=== PATIENT | female | born 1985 | race American Indian/Alaskan Native ===

== ENCOUNTER 2017-04-04 20:41 | Inpatient (IN) | payer OTHER ==
[2017-04-04 21:32] LABS: Basophils % (Auto) 0.4 % (0.0-1.8); Eosinophils % (Auto) 1.3 % (0.0-4.3); Hematocrit 37.2 % (30.3-42.9); Hemoglobin 12.1 gm/dl (10.1-14.3); Mean Corpuscular HGB Conc 33 % (30-34); Mean Corpuscular Hemoglobin 29 pg (28-32); Mean Corpuscular Volume 90 fl (79-97); Red Blood Count 4.13 M/mm3 (3.65-5.03); Red Cell Distribution Width 14.6 % (13.2-15.2); White Blood Count 11.6 K/mm3 (4.5-11.0)
[2017-04-04 21:38] LABS: Platelet Count 212 K/mm3 (140-440)
[2017-04-04 21:47] LABS: Anion Gap 19 mmol/L; Blood Urea Nitrogen 9 mg/dL (7-17); Calcium 8.9 mg/dL (8.4-10.2); Carbon Dioxide 23 mmol/L (22-30); Chloride 97.6 mmol/L (98-107); Glucose 103 mg/dL (65-100); Potassium 3.6 mmol/L (3.6-5.0); Sodium 136 mmol/L (137-145)
--- NOTE | 2017-04-04 23:56 | Emergency Department Report ---
ED Shortness of Breath HPI - General Chief Complaint: Dyspnea/Respdistress Stated Complaint: LEATHA Time Seen by Provider: 04/04/17 23:38 Source: patient Mode of arrival: Ambulatory Limitations: No Limitations - History of Present Illness Initial Comments: 32-year-old female presents to the emergency department complaining of difficulty breathing. Patient states she began having difficulty breathing 4 days ago. She reports dyspnea on exertion and fatigue. She reports pleuritic chest pain and cough. Cough has been nonproductive. There has been no fever, coughing, nausea, vomiting, or diarrhea. Patient states she was seen in the emergency room at [facility] on Sunday and was told she had fluid in her lungs from a pneumonia. She was started on anti-biotics. She states her symptoms have not improved. She was also seen by her oncologist earlier today and was told that her port may have a blood clot in it. She is scheduled for surgery in 5 days to address this possible clot. There are no other complaints. MD Complaint: shortness of breath -: Gradual, days(s) (4) Severity: mild Pain Scale: 2 Quality: other (pleuritic) Consistency: constant Improves With: nothing Worsens With: exertion Associated Symptoms: chest pain, cough - Related Data Previous Rx's Medication Instructions Recorded Last Taken Type Doxycycline [Vibramycin CAP] 100 mg PO BID #20 capsule 06/28/14 Unknown Rx Fluticasone Propionate [Flonase] 2 sprays NS QDAY #1 spray 06/28/14 Unknown Rx HYDROcodone/APAP 7.5-325 [[place] 1 each PO Q6HR PRN #20 tablet 06/28/14 Unknown Rx 7.5/325 mg] Ibuprofen [Motrin] 600 mg PO Q8H PRN #50 tablet 06/28/14 Unknown Rx Loratadine [Claritin] 10 mg PO DAILY #30 tablet 06/28/14 Unknown Rx metroNIDAZOLE [Flagyl] 500 mg PO BID #20 tablet 06/28/14 Unknown Rx Allergies Allergy/AdvReac Type Severity Reaction Status Date / Time No Known Allergies Allergy Unverified 06/28/14 11:50 ED Review of Systems ROS: Stated complaint: LEATHA Other details as noted in HPI Comment: All other systems reviewed and negative Respiratory: cough, shortness of breath, SOB with exertion Cardiovascular: chest pain ED Past Medical Hx - Past Medical History Previous Medical History?: Yes Hx Psychiatric Treatment: Yes (Anxiety) Additional medical history: Hodgkin Lymphoma - Surgical History Past Surgical History?: Yes Additional Surgical History: Port placement - Family History Family history: no significant - Social History Smoking Status: Current Some Day Smoker Substance Use Type: Alcohol - Medications Home Medications: Home Medications Medication Instructions Recorded Confirmed Last Taken Type Doxycycline [Vibramycin CAP] 100 mg PO BID #20 capsule 06/28/14 Unknown Rx Fluticasone Propionate [Flonase] 2 sprays NS QDAY #1 spray 06/28/14 Unknown Rx HYDROcodone/APAP 7.5-325 [[place] 1 each PO Q6HR PRN #20 tablet 06/28/14 Unknown Rx 7.5/325 mg] Ibuprofen [Motrin] 600 mg PO Q8H PRN #50 tablet 06/28/14 Unknown Rx Loratadine [Claritin] 10 mg PO DAILY #30 tablet 06/28/14 Unknown Rx metroNIDAZOLE [Flagyl] 500 mg PO BID #20 tablet 06/28/14 Unknown Rx ED Physical Exam - General Limitations: No Limitations General appearance: alert, in no apparent distress - Head Head exam: Present: atraumatic, normocephalic - Eye Eye exam: Present: normal appearance, PERRL, EOMI - ENT ENT exam: Present: normal exam, normal orophraynx, mucous membranes moist - Neck Neck exam: Present: normal inspection, full ROM. Absent: tenderness - Respiratory Respiratory exam: Present: decreased breath sounds (bilateral posterior bases). Absent: respiratory distress - Cardiovascular Cardiovascular Exam: Present: normal rhythm, tachycardia, normal heart sounds - GI/Abdominal GI/Abdominal exam: Present: soft, normal bowel sounds. Absent: distended, tenderness - Extremities Exam Extremities exam: Present: normal inspection, full ROM. Absent: tenderness - Back Exam Back exam: Present: normal inspection, full ROM. Absent: tenderness - Neurological Exam Neurological exam: Present: alert, oriented X3. Absent: motor sensory deficit - Skin Skin exam: Present: warm, dry, intact ED Course Vital Signs 04/04/17 04/05/17 04/05/17 20:49 00:16 02:54 Temperature 98.3 F 98.4 F Pulse Rate 120 H 111 H 103 H Respiratory 22 24 26 H Rate Blood Pressure 104/71 [Left] Blood Pressure 147/110 120/88 [Right] O2 Sat by Pulse 97 100 100 Oximetry ED Medical Decision Making - Lab Data Result diagrams: 04/04/17 21:23 04/04/17 21:23 - EKG Data -: EKG Interpreted by Me EKG shows normal: sinus rhythm, axis, intervals, QRS complexes, ST-T waves Rate: tachycardia - EKG Data When compared to previous EKG there are: previous EKG unavailable Interpretation: normal EKG - Radiology Data Radiology results: report reviewed, image reviewed interpreted by me: Chest x-ray shows bilateral pleural effusions, left greater than right. CTA of the chest shows no evidence of pulmonary embolism. There are small bilateral pleural effusions. There is also nonspecific patchy infiltrates in the left upper lobe and right middle lobe. 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 - Medical Decision Making Lab and imaging results reviewed and discussed with the patient. Patient continues to remain symptomatic with ambulation. Patient is to be admitted by the hospitalist for further treatment. - Differential Diagnosis pneumonia, pulmonary edema, PE Critical care attestation.: If time is entered above; I have spent that time in minutes in the direct care of this critically ill patient, excluding procedure time. ED Disposition Clinical Impression: Exertional dyspnea Disposition: OP ADMIT IP TO THIS HOSP Is pt being admited?: Yes Condition: Stable Referrals: PRIMARY CARE, [Primary Care Provider] - 3-5 Days Time of Disposition: 03:56
[2017-04-04] MEDS ORDERED: NACL ONE (23:59)
[2017-04-05] MEDS ORDERED: TYLENOL PO ONE (01:13)
[2017-04-05] MEDS ORDERED: TYLENOL ONE (01:13)
[2017-04-05] MEDS ORDERED: ZOFRAN ONE (03:07)
[2017-04-05] MEDS ORDERED: REGLAN IV ONE (03:08)
[2017-04-05] MEDS ORDERED: ZOFRAN IV ONE (03:08)
[2017-04-05] MEDS ORDERED: ZOFRAN ODT ONE (03:12)
[2017-04-05] MEDS ORDERED: ZOFRAN ODT PO ONE (03:12)
--- NOTE | 2017-04-05 03:40 | XRay Report ---
FINAL REPORT EXAM: CT ANGIO CHEST HISTORY: LEATHA, h/o lymphoma COMPARISON: None available. TECHNIQUE: Contiguous axial images were obtained. Additional sagittal and coronal reformatted images were obtained. Administration of IV contrast given per institution protocol. Images submitted for interpretation. 100 cc Omnipaque 350. FINDINGS: Heart normal in size. Thoracic aorta normal in caliber. No gross dissection. No pulmonary embolus identified. Left upper lobe pulmonary arterial branches appear to be small in caliber or atrophic. There may be stenosed or small in size due to prior radiation therapy to that region. No evidence of acute occlusive pulmonary embolus. There innumerable collateral vessels along the mediastinum, paraspinal region. Findings are concerning for occlusion of the SVC. Right Port-A-Cath is in place. IVC appears to be patent. Collateral vessels appear to drain into the IVC. Ill-defined soft tissue within the mediastinum which may reflect scar formation from prior radiation therapy for lymphoma. Active lymphoma cannot be excluded. Small bilateral pleural effusions. Nonspecific patchy linear opacities left upper lobe and left lower lobe which could reflect atelectasis, scarring, pneumonia, or lymphomatous involvement of the lung. Tiny hiatal hernia. Fatty infiltration of the liver. Liver is mildly enlarged measuring 23 centimeters. Degenerative changes of the thoracic spine. IMPRESSION: No acute pulmonary embolus. Ill-defined soft tissue along the mediastinum concerning for scarring related to prior radiation therapy to the mediastinum. 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 There is also blunting of the left upper lobe pulmonary arterial branches suspected be on a chronic basis related to prior radiation therapy. Nonspecific patchy opacities within left upper lobe and left lower lobe which could reflect atelectasis, pneumonia, scarring, or lymphomatous involvement of the lung. Small bilateral pleural effusions.
[2017-04-05] MEDS ORDERED: MORPHINE IV PRN (04:17)
[2017-04-05] MEDS ORDERED: ZOFRAN IV PRN (04:17)
[2017-04-05] MEDS ORDERED: ROBITUSSIN PO PRN (04:18)
[2017-04-05] MEDS ORDERED: DUONEB *Not for PRN Use IH (04:23)
--- NOTE | 2017-04-05 04:32 | History and Physical Report ---
History of Present Illness Date of examination: 04/05/17 Date of admission: 04/05/2017 Chief complaint: Chief complaint is shortness of breath History of present illness: History of present illness, patient is a 32-year-old female who has been having shortness of breath for 4 days, there is also symptoms of pleuritic chest pain and nonproductive cough. Patient denied history of fever and chills and denied history of nausea vomiting. Patient will was seen about 4 days ago at [facility] emergency room and was started on oral antibiotics Levaquin for treatment of fluids in the lung due to pneumonia, also patient was seen by her oncologist who told that she may have blood clot in the Port used for IV chemotherapy treatment. Past History Past Medical History: other (HODGKINS LYMPHOMA, PNEUMONIA, ANXIETY DISORDER) Past Surgical History: Other (PORT PLACEMENT) Social history: smoking, alcohol abuse Family history: no significant family history Medications and Allergies Allergies Allergy/AdvReac Type Severity Reaction Status Date / Time No Known Allergies Allergy Unverified 06/28/14 11:50 Home Medications Medication Instructions Recorded Confirmed Last Taken Type Doxycycline [Vibramycin CAP] 100 mg PO BID #20 capsule 06/28/14 Unknown Rx Fluticasone Propionate [Flonase] 2 sprays NS QDAY #1 spray 06/28/14 Unknown Rx HYDROcodone/APAP 7.5-325 [[place] 1 each PO Q6HR PRN #20 tablet 06/28/14 Unknown Rx 7.5/325 mg] Ibuprofen [Motrin] 600 mg PO Q8H PRN #50 tablet 06/28/14 Unknown Rx Loratadine [Claritin] 10 mg PO DAILY #30 tablet 06/28/14 Unknown Rx metroNIDAZOLE [Flagyl] 500 mg PO BID #20 tablet 06/28/14 Unknown Rx Active Meds: Active Medications Acetaminophen (Tylenol) 650 mg PO Q4H PRN PRN Reason: Fever Albuterol/Ipratropium (Duoneb *Not For Prn Use*) 1 ampul IH TIDRT PRN PRN Reason: Shortness Of Breath Enoxaparin Sodium (Lovenox) 40 mg SUB-Q QDAY SANJEEV Guaifenesin (Robitussin) 200 mg PO Q6H PRN PRN Reason: Cough Levofloxacin/Dextrose (Levaquin 750mg/150ml) 750 mg in 150 mls @ 100 mls/hr IV Q24HR SANJEEV PRN Reason: Protocol Morphine Sulfate (Morphine) 2 mg IV Q4H PRN PRN Reason: Pain, Moderate (4-6) Ondansetron HCl (Zofran) 4 mg IV Q6H PRN PRN Reason: Nausea And Vomiting Review of Systems Constitutional: weakness, no weight loss, no weight gain, no fever, no chills, no sweats, no anorexia, no fatigue, no malaise, no lethargy, no poor appetite, no daytime sleepiness Eyes: bilateral: other (NO BILATERAL EYE SYMPTOMS) Ears, nose, mouth and throat: no ear pain, no ear discharge, no tinnitis, no decreased hearing, no nose pain, no nasal congestion, no nasal discharge, no sinus pressure, no bleeding gums, no dental pain, no mouth pain, no dysphagia, no hoarseness, no sore throat, no swelling in mouth, no swelling in throat, no post-nasal drip, no headache, no vertigo, no pain front of neck, no neck fullness/pressure, no neck lump Breasts: deferred Cardiovascular: shortness of breath, decreased exercise tolerance, no chest pain , no orthopnea, no palpitations, no rapid/irregular heart beat, no edema, no syncope, no lightheadedness, no dyspnea on exertion, no paroxysmal nocturnal dyspnea, no claudication, no phlebitis, no high blood pressure, no leg edema Respiratory: cough, shortness of breath, dyspnea on exertion, no cough with sputum, no hemoptysis, no congestion, no wheezing, no pleurisy, no sleep apnea, no respiratory infections Gastrointestinal: no nausea, no vomiting, no diarrhea, no constipation, no change in bowel habits, no hematemesis, no melena, no hematochezia, no loss of appetite, no early satiety, no excessive gas, no jaundice, no dyspepsia/bloating Genitourinary Female: no dyspareunia, no dysmenorrhea, no pelvic pain, no flank pain, no menorrhagia, no dysuria, no urinary frequency, no urgency, no stress incontinence, no post void dribbling, no incomplete emptying, no urge incontinence, no mixed incontinence, no vaginal itching, no vaginal discharge, no abnormal vaginal bleeding, no genital sores, no vaginal dryness, no decreased libido, no mood problems, no hot flashes, no prolapse symptoms, no , no difficulties conceiving Menstruation: no postmenopausal Rectal: no pain, no incontinence, no bleeding, no hemorrhoids, no flatulence Musculoskeletal: no neck stiffness, no neck pain, no shooting arm pain, no arm numbness/tingling, no low back pain, no shooting leg pain, no leg numbness/ tingling, no hot joints, no morning stiffness, no muscle weakness, no muscle cramps, no myalgias, no atrophy, no frequent falls, no fractures, no loss of height, no prior amputations Integumentary: no rash, no pruritis, no redness, no sores, no jaundice, no lesions, no depigmentation, no acne, no brittle nails, no striae, no hirsutism, no foot/leg ulcers, no onychomycosis Neurological: no head injury, no transient paralysis, no paralysis, no weakness , no parathesias, no numbness, no tingling, no seizures, no syncope, no tremors , no ataxia, no headaches, no migraines, no convulsions, no aphasia, no change in speech, no change in mentation, no confusion, no memory loss, no motor disturbance, no sensory deficit, no double vision, no loss of vision, no hearing difficulties, no burning pain, no paralysis, no spasticity Psychiatric: no anxiety, no memory loss, no change in sleep habits, no sleep disturbances, no insomnia, no hypersomnia, no change in appetite, no change in libido, no suicidal ideation, no disorientation, no depression, no hopelessness , no anhedonia, no anxiety attacks, no difficulties concentrating, no confusion , no irritability, no sadness/tearfullness, no mood swings Endocrine: no cold intolerance, no heat intolerance, no polyphagia, no excessive thirst, no polydipsia, no polyuria, no nocturia, no proptosis, no deepening of the voice, no thyroid mass, no palpatations, no high blood sugars, no low blood sugars, no recent glucocorticoid use Hematologic/Lymphatic: no easy bruising, no easy bleeding, no lymphadenopathy, no lymphedema, no thrombophilia Allergic/Immunologic: no urticaria, no allergic rhinitis, no persistent infections, no anaphylaxis, no gluten intolerance, no seasonal allergies Exam - Constitutional Vitals: Temp Pulse Resp BP Pulse Ox 98.4 F 103 H 26 H 120/88 100 04/05/17 00:16 04/05/17 02:54 04/05/17 02:54 04/05/17 02:54 04/05/17 02:54 General appearance: Absent: no acute distress, mild distress, severe distress, well-nourished, cachectic, disheveled, malodorous - EENT Eyes: Present: PERRL, EOM intact. Absent: irregular pupil, scleral icterus, conjunctival injection, exopthalmos, miosis, mydriasis, discharge ENT: hearing intact, clear oral mucosa, dentition normal, no oropharyngeal erythema, no poor dentition, no edentulous - Neck Neck: Present: supple, normal ROM. Absent: enlarged thyroid, carotid bruits - Respiratory Respiratory effort: normal - Cardiovascular Rhythm: regular Heart Sounds: Present: S1 & S2. Absent: systolic murmur, diastolic murmur, rub - Extremities Extremities: no ischemia, No edema Peripheral Pulses: within normal limits - Abdominal General gastrointestinal: Present: soft, non-tender, non-distended. Absent: tender, distended, rigid, hepatomegaly, splenomegaly, mass, hernia Female genitourinary: Present: deferred - Rectal Rectal Exam: deferred - Integumentary Integumentary: Present: clear, warm, dry, normal turgor. Absent: erythema, jaundice, rash, clammy - Musculoskeletal Musculoskeletal: strength equal bilaterally - Psychiatric Psychiatric: appropriate mood/affect - Neurologic Neurologic: CNII-XII intact Results - Labs CBC & Chem 7: 04/04/17 21:23 04/04/17 21:23 Labs: Laboratory Last Values WBC 11.6 K/mm3 (4.5-11.0) H 04/04/17 21:23 RBC 4.13 M/mm3 (3.65-5.03) 04/04/17 21:23 Hgb 12.1 gm/dl (10.1-14.3) 04/04/17 21:23 Hct 37.2 % (30.3-42.9) 04/04/17 21:23 MCV 90 fl (79-97) 04/04/17 21:23 MCH 29 pg (28-32) 04/04/17 21:23 MCHC 33 % (30-34) 04/04/17 21:23 RDW 14.6 % (13.2-15.2) 04/04/17 21:23 Plt Count 212 K/mm3 (140-440) 04/04/17 21:23 Lymph % (Auto) 10.6 % (13.4-35.0) L 04/04/17 21:23 [place] % (Auto) 6.7 % (0.0-7.3) 04/04/17 21:23 Eos % (Auto) 1.3 % (0.0-4.3) 04/04/17 21: Baso % (Auto) 0.4 % (0.0-1.8) 04/04/17 21: Lymph # 1.2 K/mm3 (1.2-5.4) 04/04/17 21: [place] # 0.8 K/mm3 (0.0-0.8) 04/04/17 21: Eos # 0.1 K/mm3 (0.0-0.4) 04/04/17 21: Baso # 0.1 K/mm3 (0.0-0.1) 04/04/17 21:23 Seg Neutrophils % 81.0 % (40.0-70.0) H 04/04/17 21:23 Seg Neutrophils # 9.4 K/mm3 (1.8-7.7) H 04/04/17 21:23 VBG pH 7.489 (7.320-7.420) H 04/04/17 21:23 Sodium 136 mmol/L (137-145) L 04/04/17 21:23 Potassium 3.6 mmol/L (3.6-5.0) 04/04/17 21:23 Chloride 97.6 mmol/L (98-107) L 04/04/17 21:23 Carbon Dioxide 23 mmol/L (22-30) 04/04/17 21:23 Anion Gap 19 mmol/L 04/04/17 21:23 BUN 9 mg/dL (7-17) 04/04/17 21:23 Creatinine 0.6 mg/dL (0.7-1.2) L 04/04/17 21:23 Estimated GFR > 60 ml/min 04/04/17 21:23 BUN/Creatinine Ratio 15.00 % 04/04/17 21:23 Glucose 103 mg/dL (65-100) H 04/04/17 21:23 Lactic Acid 1.50 mmol/L (0.7-2.0) 04/04/17 21: Calcium 8.9 mg/dL (8.4-10.2) 04/04/17 21: Magnesium 1.70 mg/dL (1.7-2.3) 04/04/17 21: Troponin T < 0.010 ng/mL (0.00-0.029) 04/04/17 21: HCG, Qual Negative (Negative) 04/04/17 21:23 Assessment and Plan - Patient Problems (1) Bronchitis Current Visit: Yes Status: Acute Plan to address problem: Patient will be admitted to the medical floor, and will be on IV Levaquin 750 mg daily for empirical treatment of bronchitis, patient will be on DuoNeb 3 times daily as needed for shortness of breath and will be on Robitussin 200 mg every 4 hours by mouth for cough. Patient will be on I.V Zofran 4 mg every 6 hours for nausea and vomiting and Tylenol 650 mg by mouth as needed for fever or headache. Patient will have vascular surgical consult with Dr. Gallegos for finding of occlusion of the superior vena cava on CT scan with symptoms of chest tightness and shortness of breath and patient will be on IV morphine 2 mg every 4 hours as needed for pain and subcutaneous Lovenox for DVT prophylaxis (2) Superior vena cava obstruction Current Visit: Yes Status: Acute
[2017-04-05] MEDS: TYLENOL PO PRN ×2 (07:53→14:49)
[2017-04-05] MEDS: LOVENOX SUB-Q SCH (09:09)
--- NOTE | 2017-04-05 09:46 | Event Note ---
Date: 04/05/17 Patient was admitted this morning with acute bronchitis and superior vena caval obstruction Patient seen and evaluated, medical records reviewed, vascular consulted, agreed with the current management Follow vascular evaluation and recommendations, plan of care discussed with the patient and the nurse
[2017-04-05] MEDS ORDERED: APRESOLINE IV PRN (09:54)
--- NOTE | 2017-04-05 09:57 | Progress Note ---
Hospitalist Physical - Constitutional Vitals: Temp Pulse Resp BP Pulse Ox 98.0 F 107 H 24 171/89 94 04/05/17 08:00 04/05/17 08:00 04/05/17 08:00 04/05/17 08:00 04/05/17 08:00 General appearance: Absent: no acute distress, mild distress, severe distress, well-nourished, cachectic, disheveled, malodorous Results - Labs CBC & Chem 7: 04/04/17 21:23 04/04/17 21:23 Labs: Laboratory Last Values WBC 11.6 K/mm3 (4.5-11.0) H 04/04/17 21: RBC 4.13 M/mm3 (3.65-5.03) 04/04/17 21: Hgb 12.1 gm/dl (10.1-14.3) 04/04/17 21: Hct 37.2 % (30.3-42.9) 04/04/17 21: MCV 90 fl (79-97) 04/04/17 21: MCH 29 pg (28-32) 04/04/17 21: MCHC 33 % (30-34) 04/04/17 21: RDW 14.6 % (13.2-15.2) 04/04/17 21: Plt Count 212 K/mm3 (140-440) 04/04/17 21: Lymph % (Auto) 10.6 % (13.4-35.0) L 04/04/17 21: [place] % (Auto) 6.7 % (0.0-7.3) 04/04/17 21: Eos % (Auto) 1.3 % (0.0-4.3) 04/04/17 21: Baso % (Auto) 0.4 % (0.0-1.8) 04/04/17: Lymph # 1.2 K/mm3 (1.2-5.4) 04/04/17 21: [place] # 0.8 K/mm3 (0.0-0.8) 04/04/17 21: Eos # 0.1 K/mm3 (0.0-0.4) 04/04/17 21: Baso # 0.1 K/mm3 (0.0-0.1) 04/04/17 21:23 Seg Neutrophils % 81.0 % (40.0-70.0) H 04/04/17 21:23 Seg Neutrophils # 9.4 K/mm3 (1.8-7.7) H 04/04/17 21:23 VBG pH 7.489 (7.320-7.420) H 04/04/17 21:23 Sodium 136 mmol/L (137-145) L 04/04/17 21:23 Potassium 3.6 mmol/L (3.6-5.0) 04/04/17 21:23 Chloride 97.6 mmol/L (98-107) L 04/04/17 21:23 Carbon Dioxide 23 mmol/L (22-30) 04/04/17 21:23 Anion Gap 19 mmol/L 04/04/17 21:23 BUN 9 mg/dL (7-17) 04/04/17 21:23 Creatinine 0.6 mg/dL (0.7-1.2) L 04/04/17 21:23 Estimated GFR > 60 ml/min 04/04/17 21:23 BUN/Creatinine Ratio 15.00 % 04/04/17 21:23 Glucose 103 mg/dL (65-100) H 04/04/17 21:23 Lactic Acid 1.50 mmol/L (0.7-2.0) 04/04/17 21:23 Calcium 8.9 mg/dL (8.4-10.2) 04/04/17 21: Magnesium 1.70 mg/dL (1.7-2.3) 04/04/17 21:23 Troponin T < 0.010 ng/mL (0.00-0.029) 04/04/17 21:23 HCG, Qual Negative (Negative) 04/04/17 21:23
[2017-04-05] MEDS ORDERED: LEVAQUIN PO SCH (10:00)
[2017-04-05] MEDS ORDERED: LEVAQUIN 750MG/150ML 750 MG/150 ML BAG IV SCH ×2 (10:00→13:00)
--- NOTE | 2017-04-05 10:59 | Consultation ---
History of Present Illness - Reason for Consult Consult date: 04/05/17 SVC occlusion - History of Present Illness 32-year-old female who presents to the emergency room with history of non- Hodgkin's lymphoma who presented with dyspnea on exertion and fatigue. She also describes some left sided pleuritic pain and cough. She is seen at [facility] and was started on antibiotics for pneumonia. She reports that when she leans her head over from the waist down she becomes lightheaded and dizzy and feels like she is going to pass out. She has noted some head and neck swelling which has been present for a few weeks. She has a right-sided port which has not been accessed for many months. She denies orthopnea. She having a headache when she leans over, but does report more frequent headaches recently. She denies altered mental status. Past History Past Medical History: other (HODGKINS LYMPHOMA, PNEUMONIA, ANXIETY DISORDER) Past Surgical History: Other (PORT PLACEMENT) Social history: smoking, alcohol abuse Family history: no significant family history Medications and Allergies Allergies Allergy/AdvReac Type Severity Reaction Status Date / Time No Known Allergies Allergy Unverified 06/28/14 11:50 Home Medications Medication Instructions Recorded Confirmed Last Taken Type Doxycycline [Vibramycin CAP] 100 mg PO BID #20 capsule 06/28/14 Unknown Rx Fluticasone Propionate [Flonase] 2 sprays NS QDAY #1 spray 06/28/14 Unknown Rx HYDROcodone/APAP 7.5-325 [[place] 1 each PO Q6HR PRN #20 tablet 06/28/14 Unknown Rx 7.5/325 mg] Ibuprofen [Motrin] 600 mg PO Q8H PRN #50 tablet 06/28/14 Unknown Rx Loratadine [Claritin] 10 mg PO DAILY #30 tablet 06/28/14 Unknown Rx metroNIDAZOLE [Flagyl] 500 mg PO BID #20 tablet 06/28/14 Unknown Rx Active Meds: Active Medications Acetaminophen (Tylenol) 650 mg PO Q4H PRN PRN Reason: Fever Last Admin: 04/05/17 07:53 Dose: 650 mg Albuterol (Proventil) 2.5 mg IH Q4HRT PRN PRN Reason: Shortness Of Breath Enoxaparin Sodium (Lovenox) 40 mg SUB-Q QDAY SANJEEV Last Admin: 04/05/17 09:09 Dose: 40 mg Guaifenesin (Robitussin) 200 mg PO Q6H PRN PRN Reason: Cough Hydralazine HCl (Apresoline) 25 mg PO Q8HR SANJEEV Hydralazine HCl (Apresoline) 10 mg IV Q4HR PRN PRN Reason: Hypertension Levofloxacin (Levaquin) 750 mg PO Q24HR SANJEEV Morphine Sulfate (Morphine) 2 mg IV Q4H PRN PRN Reason: Pain, Moderate (4-6) Ondansetron HCl (Zofran) 4 mg IV Q6H PRN PRN Reason: Nausea And Vomiting Review of Systems All systems: negative (see HPI) Exam - Constitutional Vitals: Temp Pulse Resp BP Pulse Ox 98.0 F 107 H 24 171/89 94 04/05/17 08:00 04/05/17 10:00 04/05/17 10:00 04/05/17 08:00 04/05/17 08:00 General appearance: Present: no acute distress - EENT Eyes: Present: EOM intact ENT: hearing intact, other (patient has mild head and neck swelling) - Respiratory Respiratory effort: normal (at baseline, did not assess with exertion) - Psychiatric Psychiatric: appropriate mood/affect, cooperative Results - Labs CBC & Chem 7: 04/04/17 21:23 04/04/17 21:23 - Imaging and Cardiology CT scan - chest: report reviewed, image reviewed Assessment and Plan 32-year-old female with history of non-Hodgkin's lymphoma and 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 Differential may also include some tumor invasion but I think this is less likely. The patient's head and neck swelling, and dependent symptoms (feeling faint when she leans her head over) and mild headache are likely related to the SVC syndrome. No altered mental status. Shortness of breath is likely to be related to other etiologies. Patient will need anticoagulation for as long as she has lymphoma and afterwards her hematology oncologist can decide if they want to discontinue anticoagulation. Given underlying malignancy, Lovenox injections would be recommended which she is obtaining from her manager rn case oncologist. She has a surgical procedure planned for Sunday of this upcoming week with a vascular surgeon at [facility]. I discussed the situation with Dr. Drake.
[2017-04-05] MEDS: PROVENTIL IH PRN (13:02)
[2017-04-05] MEDS: APRESOLINE PO SCH (13:22)
--- NOTE | 2017-04-05 14:38 | Admit Criteria Form ---
Admission Criteria Documentation: PULMONARY DISEASE GRG Clinical Indications for Admission to Inpatient Care ( Place 'X' for any and all applicable criteria): Hospital admission is needed for appropriate care of the patient because of 1 or more of the following(1)(2): [ ]I. Impending or actual respiratory arrest. See Respiratory Failure GRG guideline for severe respiratory disease and long-term mechanical ventilation patients. (3)(4) (5) [ ]II. Severe airflow or ventilation abnormalities (not responsive to emergency and observation care treatment as appropriate) as indicated by 1 or more of the following (6)(7)(8)(9) : [ ]a) PCO2 greater than 42 mm Hg (5.6 kPa) and pH less than 7.35 (new) [ ]b) Documented PCO2 increased more than 5 mm Hg (0.7 kPa) from disease baseline [ ]c) Airflow measurements[A] less than 60% of previous best or predicted (eg, peak expiratory flow rate less than 300 L/min) despite intensive emergent treatment(B) [ ]d) Required respiratory treatments that are performable only in acute inpatient setting [ ]III. Severe respiratory findings (not responsive to emergency and observation care treatment as appropriate) including 1 or more of the following(6)(9)(10): [ ]a) Respiratory distress as indicated by ALL of the following(6)(11): [ ]i) Patient with 1 or more of the following: [ ]1) Dyspnea (difficulty breathing) [ ]2) Tachypnea [ ]3) Abnormal breathing pattern (eg, chest retractions) [ ]4) Other evidence of difficulty breathing [ ]ii) Evidence of respiratory compromise indicated by 1 or more of the following: [ ]1) Hypoxemia [ ]2) Altered mental status [ ]3) Other evidence of respiratory compromise (eg, pulmonary edema on chest x-ray) [ ]b) Stridor [ ]c) Gross hemoptysis(12) [ ]d) Acute cyanosis [ ]IV. Chronic lung disease with severe deterioration (not responsive to emergency and observation care treatment as appropriate) as indicated by 1 or more of the following(7) (13): [ ]a) SaO2 5% below baseline in patient with chronic hypoxemia [ ]b) New requirement for supplemental oxygen to keep SaO2 at baseline or acceptable level [ ]c) Required supplemental oxygen performable only in acute inpatient setting [ ]d) Severe airflow or ventilation abnormalities [ ]e) Previouslymobile patient unable to walk between rooms [ ]f) Inability to eat or sleep due to dyspnea [ ]g) Altered mental status that is severe or persistent [ ]V. Empyema or lung abscess(14)(15) [ ]Vl. Severe atelectasis or lung collapse(16)(17) [ ][place]. Tuberculosis requiring inpatient treatment as indicated by 1 or more of the following(18)(19)(20)(21): [ ]a) Diagnosis suspected (eg, symptomatic patient from endemic area or in high-risk population, with abnormal chest imaging) and cannot be ruled out within observation care timeframe (ie, sputum analysis, nucleic acid amplification techniques not rapidly available or not diagnostic) [ ]b) Severely symptomatic patient (eg, Hypoxemia, Hemodynamic instability, Tachypnea) [ ]c) Dgtim-sxzv-tsmsxbegz infection suspected in newly diagnosed patient (eg, treatment regimen may require near-term adjustment) [ ]d) Newly diagnosed patient at high-risk of short-term deterioration (eg, HIV positive, frail, immunocompromised, chronic lung disease) [ ]e) High infectivity suspected (eg, laryngeal disease, cavitary pulmonary lesions, ongoing positivity of sputum) and 1 or more of the following: [ ]i) Unexposed household contacts at high risk (eg, immunocompromised, elderly, infants, chronic lung disease) [ ]ii) Patient unable or unwilling to avoid exposing others (eg, significant psychiatric disease, substance abuse, developmental disability) [ ]f) Complication of tuberculosis requiring inpatient treatment (eg , constrictive pericarditis, tubercular meningitis) [ ]g) Hospitalization mandated by public health authority (eg, patient continually noncompliant with directly observed therapy) [ ]VIII. High-risk pulmonary infection as indicated by 1 or more of the following(22)(23)(24)(25): [ ]a) Temperature less than 95 degrees F (35 degrees C) or greater than 103.1 degrees F (39.5 degrees C) [ ]b) Hemodynamic instability [ ]c) Immunocompromised patient (eg, AIDS, post transplant, neutropenic)(26)(27) [ ]d) History of severe COPD(28) [ ]e) History of severely symptomatic congestive heart failure(29) [ ]f) Other high-risk comorbidity (eg, poorly controlled diabetes, cirrhosis, chronic renal insufficiency) [ ]g) Hypoxemia [ ]h) severe stridor (30) [ ]i) Outpatient, observation, or recovery facility therapy has failed, is not appropriate, or is not feasible. [ ]IX. Complications of tracheostomy that remains after emergency or observation level care(31)(32)(33)(34) [ ]X. Respiratory complications of organ transplant (eg, rejection, respiratory failure, respiratory infection)(27) [ ]XI. Severe pulmonary arterial hypertension or pulmonary vascular disease requiring inpatient care indicated by 1 or more of the following(35)(36)(37)(38): [ ]a) Initiation or change of vasodilators (IV, subcutaneous, or inhaled) or other vasoactive medications needed [ ]b) IV anticoagulation needed (eg, immediate anticoagulation necessary, alternatives not appropriate) [ ]c) Arterial or pulmonary artery catheter monitoring needed due to infusion or other treatment [ ]XII. Cystic fibrosis requiring inpatient care as indicated by 1 or more of the following(39)(40): [ ]a) Severe exacerbation that does not respond to intensified home therapy(41) [ ]b) Severe exacerbation with patient unable to perform prescribed treatments at home [ ]c) Pneumonia [ ]d) Pneumothorax(42) [ ]e) Atelectasis [ ]f) Hemoptysis(43) [ ]XIII. Bronchiectasis requiring inpatient care as indicated by 1 or more of the following(44)(45): [ ]a) Respiratory distress [ ]b) Severe exacerbation and outpatient or observation care therapy has failed, is not appropriate, or is not feasible. [ ]XIV. Sarcoidosis requiring inpatient care as indicated by 1 or more of the following(46)(47)(48): [ ]a) Respiratory distress [ ]b) Cardiac involvement with arrhythmia(49) [ ]c) Outpatient or observation care therapy has failed, is not appropriate, or is not feasible. [ ]XV. Intestitial lung disease requiring inpatient care as indicated by 1 or more of the following(50)(51): [ ]a) Respiratory distress [ ]b) Severe exacerbation and outpatient or observation care therapy has failed, is not appropriate, or is not feasible [ ]XVI. Allergic pneumonitis requiring inpatient care as indicated by 1 or more of the following(52): [ ]a) Respiratory distress [ ]b) Acute eosinophilic pneumonia [ ]c) [place] with cardiac involvement [ ]d) Outpatient or observation care therapy has failed, is not appropriate, or is not feasible [ ]XVIl. Severe right heart failure requiring inpatient care as indicated by 1 or more of the following(35)(53)(54): [ ]a) Respiratory distress [ ]b) Debilitating anasarca that remains after emergency or observation level care (eg, tissue [ ]c) breakdown with severe infection, inability to void due to edema) [C](41)(42)(43)(44) [ ]d) Hemodynamic instability [ ]e) Syncope [ ]f) Angina that requires inpatient care (eg, not treatable in emergency or observation level of care) [ ]g) Increasing organ failure (eg, liver congestion with significant and worsening or new elevation of transaminases) [ ]XVIll. Injury requiring inpatient care (medical) as indicated by 1 or more of the following(59)(60)(61) [ ]a) Significant inhalation injury (eg, smoke inhalation, other toxic inhalation)(62)(63)(64) [ ]b) Airway obstruction that remains or is unstable after emergency or observation level care(65)(66) [ ]c) Severe pain requiring acute inpatient management [ ]d) Lung contusion(67) [ ]e) Flail chest(68) [ ]f) Bronchial tree injury [ ]g) Air or fat emboli [ ]h) Other injury not treatable in emergency or observation level care (eg, hemothorax)(55) [ ]XlX. Pulmonary hemorrhage or significant hemoptysis(12)(43)(69) [ ]XXl. Complications of transplanted lung indicated by 1 or more of the following(70)(71) [ ]a) Acute graft rejection requiring inpatient management (eg, intravenous immunosuppression)(72)(73)(74) [ ]b) Failure of transplant lung as indicated by 1 or more of the following(75)(76): [ ]i) Anastomotic leak [ ]ii) Airway ischemia or necrosis [ ]iii) Airway fistula [ ]iv) Obstructing granulation tissue requiring intervention [ ]v) Bronchial stenosis or stricture requiring intervention [ ]vi) Tracheobronchomalacia requiring intervention [ ]vii) Severe airflow or ventilation abnormalities [ ]viii) Severe respiratory findings [ ]c) Infection requiring inpatient management (eg, Hemodynamic instability, need for intravenous antimicrobial treatment)(77)(78)(79)(80)(81)(82 [ ]d) Other complication of transplanted lung (eg, obliterative bronchiolitis, plastic bronchitis, thrombotic microangiopathy, constrictive pericarditis) requiring inpatient management(83)(84)(85)(86)(87) [ ]XXll. Inpatient palliative care needed.[D](88)(89)(90)(91) [ X]XXlll. Pulmonary Disease condition, symptom, or finding for which emergency and observation care have failed or are not considered appropriate. The original [facility] [place] content created by [employer] has been revised. The portions of the content which have been revised are identified through the use of italic text or in bold, and [facility] has neither reviewed nor approved the modified material. All other unmodified content is copyright [facility]. Please see references footnoted in the original [facility] [place] edition 2017 Admission Criteria Met: Yes
[2017-04-05] MEDS ORDERED: XANAX PO PRN (15:09)
[2017-04-05] MEDS ORDERED: ULTRAM PO PRN (15:10)
[2017-04-06] MEDS: APRESOLINE PO SCH ×4 (00:20→22:22)
[2017-04-06] MEDS: LEVAQUIN PO SCH (09:44)
[2017-04-06] MEDS: LOVENOX SUB-Q SCH ×2 (09:44→22:22)
[2017-04-06] MEDS: PROVENTIL IH PRN (10:10)
[2017-04-06] MEDS ORDERED: LOVENOX SUB-Q ONE (12:18)
[2017-04-06] MEDS ORDERED: ZOFRAN PO PRN (12:21)
[2017-04-06] MEDS ORDERED: ZOFRAN ODT PO PRN (13:05)
--- NOTE | 2017-04-06 16:04 | Progress Note ---
Assessment and Plan Assessment and plan: --Acute bronchitis Oxygen titrate O2 sats to more than 90%, Nebulizers as needed, IV antibiotics, follow cultures --SVC obstruction Supportive care, vascular evaluation patient, patient has vascular surgery scheduled for next Sunday at [facility] Vascular Surgeon Dr. Parada has evaluated the patient, symptomatic management, return to her private vascular no side for the scheduled surgical procedure upon discharge --Possible SVC thrombus on CTA chest Full dose anticoagulation is recommended by vascular surgery, Lovenox 1 mg per KG body weight every 12 hours, closely monitor H&H --Morbid obesity Consultation done and advised dietary modification and exercise as tolerated and weight reduction when medically stable Patient also had benefit by outpatient bariatric surgical consultation for weight reduction program upon discharge when medically stable Patient verbalized understanding --Obstructive sleep apnea; CPAP at night, patient may need outpatient sleep studies if not already done upon discharge --Constipation; managed with stool softeners, Fleet enema if no improvement. --DVT prophylaxis; patient is already on Lovenox --DC planning. Case management Closely monitor the patient and adjust management if needed. Patient's condition treatment plan discussed in detail with the patient, family members at the bedside, her nurse and the case management History Interval history: Patient seen and evaluated this morning medical record reviewed Complaining of worsening shortness but worsening facial edema Requests to be transferred to [facility] for immediate vascular surgery for her SVC syndrome Oriented 3 not in acute distress Vital Signs reviewed Hospitalist Physical - Constitutional Vitals: Temp Pulse Resp BP Pulse Ox 98.4 F 89 18 130/90 98 04/06/17 08:16 04/06/17 10:16 04/06/17 10:16 04/06/17 08:04/06/17 10:00 General appearance: Present: no acute distress, well-nourished, obese (morbidly obese), other (puffiness of her face) - EENT Eyes: Present: PERRL, EOM intact - Neck Neck: Present: supple, normal ROM - Respiratory Respiratory effort: normal Respiratory: bilateral: diminished, wheezing (occasional wheeze), negative: rales, rhonchi - Cardiovascular Rhythm: regular Heart Sounds: Present: S1 & S2 - Extremities Extremities: no ischemia, No edema - Abdominal General gastrointestinal: soft, non-tender, non-distended, normal bowel sounds - Integumentary Integumentary: Present: clear, warm - Psychiatric Psychiatric: appropriate mood/affect, cooperative - Neurologic Neurologic: CNII-XII intact, moves all extremities Results - Labs CBC & Chem 7: 04/04/17 21:23 04/04/17 21:23 Labs: Laboratory Last Values WBC 11.6 K/mm3 (4.5-11.0) H 04/04/17 21: RBC 4.13 M/mm3 (3.65-5.03) 04/04/17 21: Hgb 12.1 gm/dl (10.1-14.3) 04/04/17 21: Hct 37.2 % (30.3-42.9) 04/04/17 21: MCV 90 fl (79-97) 04/04/17 21: MCH 29 pg (28-32) 04/04/17 21: MCHC 33 % (30-34) 04/04/17 21: RDW 14.6 % (13.2-15.2) 04/04/17 21: Plt Count 212 K/mm3 (140-440) 04/04/17 21: Lymph % (Auto) 10.6 % (13.4-35.0) L 04/04/17 21: [place] % (Auto) 6.7 % (0.0-7.3) 04/04/17 21: Eos % (Auto) 1.3 % (0.0-4.3) 04/04/17 21: Baso % (Auto) 0.4 % (0.0-1.8) 04/04/17 21: Lymph # 1.2 K/mm3 (1.2-5.4) 04/04/17 21: [place] # 0.8 K/mm3 (0.0-0.8) 04/04/17 21: Eos # 0.1 K/mm3 (0.0-0.4) 04/04/17 21: Baso # 0.1 K/mm3 (0.0-0.1) 04/04/17 21:23 Seg Neutrophils % 81.0 % (40.0-70.0) H 04/04/17 21: Seg Neutrophils # 9.4 K/mm3 (1.8-7.7) H 04/04/17 21:23 VBG pH 7.489 (7.320-7.420) H 04/04/17 21:23 Sodium 136 mmol/L (137-145) L 04/04/17 21:23 Potassium 3.6 mmol/L (3.6-5.0) 04/04/17 21:23 Chloride 97.6 mmol/L (98-107) L 04/04/17 21:23 Carbon Dioxide 23 mmol/L (22-30) 04/04/17 21:23 Anion Gap 19 mmol/L 04/04/17 21:23 BUN 9 mg/dL (7-17) 04/04/17 21:23 Creatinine 0.6 mg/dL (0.7-1.2) L 04/04/17 21:23 Estimated GFR > 60 ml/min 04/04/17 21:23 BUN/Creatinine Ratio 15.00 % 04/04/17 21:23 Glucose 103 mg/dL (65-100) H 04/04/17 21:23 Lactic Acid 1.50 mmol/L (0.7-2.0) 04/04/17 21:23 Calcium 8.9 mg/dL (8.4-10.2) 04/04/17 21:23 Magnesium 1.70 mg/dL (1.7-2.3) 04/04/17 21:23 Troponin T < 0.010 ng/mL (0.00-0.029) 04/04/17 21:23 HCG, Qual Negative (Negative) 04/04/17 21:23
--- NOTE | 2017-04-06 16:22 | Event Note ---
Date: 04/06/17 I called and discussed the case with patient's private vascular surgeon, Dr. Flako Shelby from [facility], who agreed with the current management Advised the patient to see him in the office on 04/10/2017
[2017-04-06] MEDS: PERCOCET 5/325 PO PRN (18:07)
[2017-04-06] MEDS: COLACE PO SCH (22:21)
[2017-04-07] MEDS: PERCOCET 5/325 PO PRN ×2 (01:07→08:08)
[2017-04-07 03:58] LABS: Basophils % (Auto) 0.1 % (0.0-1.8); Eosinophils % (Auto) 1.2 % (0.0-4.3); Hematocrit 37.1 % (30.3-42.9); Hemoglobin 12.3 gm/dl (10.1-14.3); Mean Corpuscular HGB Conc 33 % (30-34); Mean Corpuscular Hemoglobin 30 pg (28-32); Mean Corpuscular Volume 90 fl (79-97); Platelet Count 229 K/mm3 (140-440); Red Blood Count 4.12 M/mm3 (3.65-5.03); Red Cell Distribution Width 14.5 % (13.2-15.2); White Blood Count 11.9 K/mm3 (4.5-11.0)
[2017-04-07 04:11] LABS: Anion Gap 19 mmol/L; BUN/Creatinine Ratio 14.28; Blood Urea Nitrogen 10 mg/dL (7-17); Calcium 9.4 mg/dL (8.4-10.2); Carbon Dioxide 27 mmol/L (22-30); Chloride 96.8 mmol/L (98-107); Glucose 97 mg/dL (65-100); Potassium 3.6 mmol/L (3.6-5.0); Sodium 139 mmol/L (137-145)
[2017-04-07] MEDS: APRESOLINE PO SCH ×2 (05:30→14:21)
[2017-04-07] MEDS: PROVENTIL IH PRN (08:18)
[2017-04-07] MEDS: LOVENOX SUB-Q SCH (09:43)
[2017-04-07] MEDS: COLACE PO SCH (09:43)
[2017-04-07] MEDS: LEVAQUIN PO SCH (09:44)
--- NOTE | 2017-04-07 12:22 | Discharge Summary ---
Providers - Providers Date of Admission: 04/05/17 03:56 Date of discharge: 04/07/17 Attending physician: RAVEN GRIMM 04/05/17 06:22 Consult to Physician [CONS] Routine Consulting Provider: SHELBIE ROBERTSON Reason For Exam: SUPERIOR VENA CAVA OCCLUTION Place consult to:: SHELBIE ROBERTSON Notified:: breanne Was contact made?: Yes If yes, spoke with:: breanne Time called:: 08:46 Primary care physician: CONTENT ENGINEER Hospitalization Reason for admission: worsening shortness of breath/facial edema Condition: Stable Pertinent studies: Chest x-ray; CT angiogram of the chest did not reveal any pulmonary embolism, ill-defined soft tissue along the mediastinum concerning for scarring, also 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 Patient was seen by her personnel officer who who told her that she may have blood clot in the port which was used for chemotherapy, patient was also treated in the emergency room for her pneumonia and was started on Levaquin In the emergency room in 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 Kenny Parada, who recommended anticoagulation with Lovenox, also discussed with her hematology oncologist Patient has already has an appointment on 04/10/2017 to see vascular surgeon Dr. Saud Shelby at [facility] for further evaluation and management of SVC occlusion. Patient's symptoms significantly improved, patient was placed on full dose anticoagulation with Lovenox, today she is comfortable in bed no new complaints Room air O2 sat 95-96%, no indication for home oxygen Mild shortness of breath, anxiety, vital signs are stable, [id number] evaluation and physical examination done by me prior to discharge did not show any new changes Patient is hemodynamically and clinically stable for discharge home today Final diagnosis; Acute bronchitis/pneumonia SVC obstruction Possible SVC thrombus on CT of chest Anxiety disorder Morbid obesity Obstructive sleep apnea History of lymphoma Disposition: DC-01 TO HOME OR SELFCARE Time spent for discharge: 33 min Core Measure Documentation - Palliative Care Palliative Care/ Comfort Measures: Not Applicable - Core Measures Any of the following diagnoses?: none Exam - Constitutional Vitals: Temp Pulse Resp BP Pulse Ox 98.4 F 98 H 20 121/64 95 04/07/17 08:49 04/07/17 10:00 04/07/17 10:00 04/07/17 08:49 04/07/17 10:00 General appearance: Present: no acute distress, well-nourished, obese (morbidly obese) - EENT Eyes: Present: PERRL, EOM intact - Neck Neck: Present: supple, normal ROM - Respiratory Respiratory effort: normal Respiratory: bilateral: diminished, negative: rales, rhonchi, wheezing - Cardiovascular Rhythm: regular Heart Sounds: Present: S1 & S2 - Extremities Extremities: no ischemia, No edema - Abdominal General gastrointestinal: Present: soft, non-tender, non-distended, normal bowel sounds - Integumentary Integumentary: Present: clear, warm - Musculoskeletal Musculoskeletal: strength equal bilaterally - Psychiatric Psychiatric: appropriate mood/affect, cooperative - Neurologic Neurologic: CNII-XII intact, moves all extremities Plan Activity: advance as tolerated Diet: low salt Additional Instructions: f/u Private Vascular Surgeon Dr.Siddhard Shelby on Sunday04/10/17[pt has appointment]. Room air O2 sats 95- 96%, no indication for home oxygen. if you have Chest pain shortness of breath contact MD, or go to emergency room. If you notice any bleeding, stop Lovenox contact M.Bernadette or go to emergency room Follow up with: PRIMARY CARE, [Primary Care Provider] - 3-5 Days Prescriptions: ALBUTEROL Inhaler [ProAir HFA Inhaler] 2 puff IH QID PRN #1 inhalation PRN Reason: Shortness Of Breath ALPRAZolam [Xanax TAB] 0.25 mg PO BID PRN #10 tab PRN Reason: Anxiety Enoxaparin [Lovenox] 150 mg SUB-Q Q12HR #7 syringe hydrALAZINE [Apresoline TAB] 25 mg PO Q8HR #60 tablet Levofloxacin [Levaquin TAB] 750 mg PO Q24HR #5 tablet traMADol [Ultram 50 MG tab] 50 mg PO Q8H PRN #15 tablet PRN Reason: Pain, Moderate (4-6)
[2017-04-07 12:45] VITALS: BP 145/91
== END 2017-04-07 16:34 | disposition home or self-care (01) | DRG 202 ==
LOC: ED 20:41 → 4A 04-05 03:56
PROVIDERS: ADMIT Internal Medicine; ATTEND Internal Medicine
DX: J20.9 Acute bronchitis, unspecified (principal); J18.9 Pneumonia, unspecified organism; I87.1 Compression of vein; Z68.43 Body mass index [BMI] 50.0-59.9, adult; F41.9 Anxiety disorder, unspecified; F17.200 Nicotine dependence, unspecified, uncomplicated; F10.10 Alcohol abuse, uncomplicated; G47.33 Obstructive sleep apnea (adult) (pediatric); E66.01 Morbid (severe) obesity due to excess calories; Z85.72 Personal history of non-Hodgkin lymphomas
CPT/HCPCS: 36415; 71020; 71275; 80048; 82140; 82805; 83735; 84484; 84703; 85025; 87040; 93005; 93010; 94640; 99285; J1650; J1956; J2270; J2405; Q0162; Q9967

== ENCOUNTER 2017-04-27 11:07 | Emergency (ER) | payer SELFPAY ==
[2017-04-27 11:40] VITALS: BP 151/107
[2017-04-27] MEDS: PHENERGAN PO ONE (14:05)
[2017-04-27] MEDS: TYLENOL #3 PO ONE (14:05)
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
[2017-04-27 14:41] LABS: Basophils % (Auto) 0.4 % (0.0-1.8); Eosinophils % (Auto) 3.4 % (0.0-4.3); Hematocrit 34.1 % (30.3-42.9); Hemoglobin 11.3 gm/dl (10.1-14.3); Mean Corpuscular HGB Conc 33 % (30-34); Mean Corpuscular Hemoglobin 31 pg (28-32); Mean Corpuscular Volume 92 fl (79-97); Platelet Count 254 K/mm3 (140-440); Red Cell Distribution Width 14.4 % (13.2-15.2); White Blood Count 8.1 K/mm3 (4.5-11.0)
[2017-04-27 14:48] LABS: Alanine Aminotransferase 20 units/L (7-56); Albumin 3.5 g/dL (3.9-5); Albumin/Globulin Ratio 0.9 %; Alkaline Phosphatase 33 units/L (35-129); Anion Gap 20 mmol/L; BUN/Creatinine Ratio 17.14; Blood Urea Nitrogen 12 mg/dL (7-17); Calcium 9.3 mg/dL (8.4-10.2); Carbon Dioxide 23 mmol/L (22-30); Chloride 99.6 mmol/L (98-107); Glucose 120 mg/dL (65-100); Sodium 139 mmol/L (137-145); Total Protein 7.4 g/dL (6.3-8.2)
== END 2017-04-27 14:45 | disposition left against medical advice (07) ==
LOC: ED 11:07
DX: R05 Cough (principal)
CPT/HCPCS: 36415; 80053; 85025; 99283; Q0169

== ENCOUNTER 2019-03-14 23:02 | Emergency (ER) | payer OTHER ==
[2019-03-15] MEDS ORDERED: TYLENOL ONE (00:51)
[2019-03-15] MEDS ORDERED: TYLENOL PO ONE (00:51)
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
[2019-03-15 08:01] VITALS: BP 121/69
== END 2019-03-15 03:20 | disposition home or self-care (01) ==
LOC: ED 23:02
DX: A59.9 Trichomoniasis, unspecified (principal); M54.5 Low back pain; R51 Headache; M54.2 Cervicalgia; R06.02 Shortness of breath; R07.89 Other chest pain; R10.9 Unspecified abdominal pain; R11.10 Vomiting, unspecified; F41.9 Anxiety disorder, unspecified; Z87.891 Personal history of nicotine dependence; Z79.899 Other long term (current) drug therapy; V49.49XA Driver injured in collision with other motor vehicles in traffic accident, initial encounter; Y93.89 Activity, other specified; Y92.488 Other paved roadways as the place of occurrence of the external cause; Y99.8 Other external cause status
CPT/HCPCS: 93005; 93010; 99283